=== PATIENT | female | born 1955 | race Caucasian/White ===

== ENCOUNTER → 2023-12-21 | Outpatient (CLI) | payer MEDICARE ==
--- NOTE | 2023-12-21 09:21 | CT ---
EXAMINATION TYPE: CT right knee - [facility] Protocol DATE OF EXAM: 12/21/2023 COMPARISON: None HISTORY: JENNIFER protocol rt knee CT DLP: 558 mGycm TECHNIQUE- CT of the right knee [facility] protocol is performed. FINDINGS: A hypertrophic hip arthropathy bilaterally. Recommend correlation for femoral acetabular impingement. Tiny spurs involving the greater trochanter of the bilateral hip. There is a moderate suprapatellar bursal fluid collection. There is severe osteoarthritis with most m arked findings involving the medial compartment. Small spur or soft tissue ossification along the destin driceps insertion of the patella. There are no erosive changes. There is a tiny 1 cm popliteal fossa cyst. Calcaneal spurs are seen. Ankle mortise is symmetric. IMPRESSION: 1. Severe osteoarthritis of the knee.
== END | disposition home or self-care (01) ==
LOC: RADCTMAIN 07:55
PROVIDERS: ATTEND Orthopaedic Surgery
DX: M17.12 Unilateral primary osteoarthritis, left knee (principal)

== ENCOUNTER → 2024-12-30 | Outpatient (CLI) | payer MEDICARE ==
--- NOTE | 2024-12-31 06:32 | BD ---
EXAMINATION TYPE: Axial Bone Density DATE OF EXAM: 12/30/2024 CLINICAL HISTORY: 69 years old Female. ICD-10 CODE: N95.1POST MENOPAUSAL,M85.88 DISORDER OF BONE , A dditional History: Height: 63.5 in Weight: 157 lbs FRAX RISK QUESTIONS: History of Fracture in Adulthood: rt elbow age 23; rt foot age 23 EXAM MEASUREMENTS: Bone mineral densitometry was performed using the [employer] System. Bone mineral density as measured about the Lumbar spine is: ----- L1-L4(G/cm2): 1.426 T Score Values are as follows: ----- L1: 0.2 ----- L2: 1.1 ----- L3: 3.0 ----- L4: 3.2 ----- L1-L4: 2.0 Z Score Values are as follows: ----- L1: 1.7 ----- L2: 2.5 ----- L3: 4.5 ----- L4: 4.7 ----- L1-L4: 3.5 Bone mineral density baseline Bone mineral density about the R hip (g/cm2): 1.056 Bone mineral density about the L hip (g/cm2): 1.159 T Score values are as follows: -----R Neck: 0.6 -----L Neck: 0.4 -----R Total: 0.4 -----L Total: 1.2 Z Score values are as follows: -----R Neck: 2.1 -----L Neck: 1.9 -----R Total: 1.6 -----L Total: 2.5 Bone mineral density baseline FRAX%s: The graph provided illustrates a 10.6% chance for a major osteoporotic fx and a 0.3% chance f or the hips probability for fx in 10 years time. IMPRESSION: Normal (Values between +1 and -1 indicate normal bone mass). Consider repeating this study in 5 year s or sooner if there is some new clinical indication. NOTE: T-SCORE=SD OF THE YOUNG ADULT MEAN. [facility], , 12/31/2024 6:30 AM
--- NOTE | 2024-12-31 07:16 | MM ---
Reason for Exam: Screening (asymptomatic). Last mammogram was performed 2 year(s) and 4 month(s) ago. Patient History: Menarche at age 14. First Full-Term at age 25. Postmenopausal. 2009, Benign Stereotactic Core Biopsy on the left side. Risk Values: Debbie 5 year model risk: 1.8%. NCI Lifetime model risk: 5.9%. Prior Study Comparison: 03/14/2013 Bilateral Screening Mammogram, [facility]. 05/31/2021 Bilateral Screening Mammogram, [facility]. 09/12/2022 Bilateral Screening Mammogram, [facility]. Tissue Density: The breasts are heterogeneously dense, which may obscure small masses. Findings: Analyzed By CAD. Mammotome biopsy clip in the left breast is redemonstrated. Benign-appearing bilateral axillary lymph nodes are seen. There is no suspicious group of microcalcifications or new suspicious mass in either breast. Overall Assessment: Negative, BI-RAD 1 Management: Screening Mammogram of both breasts in 1 year. . Patient should continue monthly self-breast exams. A clinical breast exam by your physician is recommended on an annual basis. This exam should not preclude additional follow-up of suspicious palpable abnormalities. Note on Debbie scores and lifetime risk: 1. A Debbie score greater than 3% is considered moderate risk. If this is the case, consider specialist referral to assess eligibility for a risk reducing agent. 2. If overall lifetime risk for the development of breast cancer is 20% or higher, the patient may qualify for future screening with alternating mammogram and breast MRI. [facility], , 12/31/2024 7:13 AM. Electronically signed and approved by: Jordan Harris M.D.
== END | disposition home or self-care (01) ==
LOC: RADMAMWWP 15:56
PROVIDERS: ATTEND Internal Medicine
DX: Z12.31 Encounter for screening mammogram for malignant neoplasm of breast (principal); R92.333 Mammographic heterogeneous density, bilateral breasts; M85.88 Other specified disorders of bone density and structure, other site; Z78.0 Asymptomatic menopausal state
CPT/HCPCS: 77063; 77067; 77080

== ENCOUNTER 2025-01-31 10:21 | Day surgery (SDC) | payer MEDICARE, OTHER ==
[2025-01-29 16:27] VITALS: BMI 27.0
[2025-01-31 10:46] VITALS: TEMP 97.9
[2025-01-31] MEDS: IV FLUID CONTINUATION 1,000 ML IV ONE (10:55)
[2025-01-31] MEDS: LACTATED RINGERS 1,000 ML IV SCH (11:03)
[2025-01-31] MEDS ORDERED: PROPOFOL 10 MG/ML 20 ML VIAL IV ONE (11:56)
--- NOTE | 2025-01-31 12:11 | P.PCN ---
Date of Procedure: 01/31/25 Procedure(s) Performed: BRIEF HISTORY: Patient is a 70-year-old pleasant white female scheduled for an elective colonoscopy as a part of screening for colon cancer. PROCEDURE PERFORMED: Colonoscopy with cold snare polypectomy. PREOPERATIVE DIAGNOSIS: Screening for colon cancer. IV sedation per Anesthesia. PROCEDURE: After informed consent was obtained, the patient, was brought into the endoscopy unit. IV sedation was administered by Anesthesia under continuous monitoring. Digital rectal examination was normal. Initially the Olympus CF-160 flexible video colonoscope was then inserted in the rectum, gradually advanced into the cecum without any difficulty. Careful examination was performed as the scope was gradually being withdrawn. Ileocecal valve and the appendiceal orifice were visualized and appeared normal. Prep was excellent. Mucosa of the cecum had a 1 cm flat polyp noted just opposite ileocecal valve status post cold snare polypectomy. In the ascending colon there was a 4 mm polyp that was removed by cold snare polypectomy. Rest of the, ascending colon, transverse colon, alberto cending colon, sigmoid colon, and rectum appeared normal. Retroflexion was performed in the rectum and no lesions were seen. The patient tolerated the procedure well. IMPRESSION: 1 cm flat cecal polyp in the proximal cecum opposite to the ileocecal valve status post cold snare polypectomy 4 mm ascending colon polyp status post cold snare polypectomy Rest of the colon appeared normal. RECOMMENDATIONS: Findings of this examination were discussed with the patient as well as her family. She was advised to follow-up with the biopsy results. The biopsy reveals adenoma she can have repeat colonoscopy in 3 years.
[2025-01-31 12:36] VITALS: BP 110/71; PULSE 65; RESP 14
== END 2025-01-31 12:44 ==
LOC: ORWHC2ENDO 10:21
PROVIDERS: ATTEND Internal Medicine Gastroenterology
DX: Z12.11 Encounter for screening for malignant neoplasm of colon (principal); D12.0 Benign neoplasm of cecum; D12.2 Benign neoplasm of ascending colon; G25.81 Restless legs syndrome; F41.9 Anxiety disorder, unspecified; Z79.899 Other long term (current) drug therapy; Z87.891 Personal history of nicotine dependence
CPT/HCPCS: 88305; 45385; J2704